=== PATIENT | female | born 1980 | race Hispanic/Latino ===

== ENCOUNTER 2016-10-06 13:45 | Emergency (ER) | payer BC ==
[2016-10-06] MEDS ORDERED: XYLOCAINE 1% MPF 5 mL INFILTRATI ONE (21:13)
[2016-10-06] MEDS ORDERED: ROCEPHIN IM ONE (21:13)
--- NOTE | 2016-10-06 21:57 | Emergency Department Report ---
Entered by HARDEEP LIMA, acting as scribe for LULI HARRIS PA. - General Chief complaint: Extremity Injury, Lower Stated complaint: LEFT FOOT INFECTION Time Seen by Provider: 10/06/16 20:37 Source: patient Mode of arrival: Ambulatory Limitations: No Limitations - History of Present Illness Initial comments: 36 y/o female with PMHx of MVP, presents to the ED c/o abscess to the medial aspect of the left foot beginning 2 weeks ago and worsening 1 week ago. The patient states the abscess initially was a blister, but became worse with wearing closed toed workboots. She was seen by her PCP for the same symptoms, and prescribed doxycycline for the symptoms. She is compliant with Abx Rx, and states that she has been soaking the affected area in hot salt water baths and applying OTC abx ointment. The affected area had pus-like drainage last night. She became concerned when the area around the abscess became increasingly pink in color. Patient denies fever, headache, dizziness, acute chest pain, shortness of breath MD complaint: abscess/boil -: week(s) (began 2 weeks ago, became worse 1 week ago) Location: L foot (medial left foot just distal from the first left toe) Severity: moderate Consistency: constant Improves with: other (hot salt water bath) Worsens with: other (wearing closed toed shoes) Context: other (patient has Hx of staph infections, was prescribed doxycyclin by her PCP. She is concerned about a change in color near the affected area) Associated symptoms: other (drainage from the affected area, denies acute changes in chest pain, dizziness, SOB) Treatments Prior to Arrival: bandages, OTC topical medication (topical Abx), antibiotic (doxycyclin (rx'ed by PCP)), other (hot salt water baths) - Related Data Home Medications Medication Instructions Recorded Confirmed Last Taken Doxycycline [Vibramycin] 100 mg PO Q12HR 10/06/16 10/06/16 10/06/16 06:30 Allergies Allergy/AdvReac Type Severity Reaction Status Date / Time No Known Allergies Allergy Verified 10/06/16 15:52 Abscess Boil HPI - HPI Chief Complaint: Extremity Injury, Lower Stated Complaint: LEFT FOOT INFECTION Time Seen by Provider: 10/06/16 20:37 Duration: >1 Week (2 weeks initial onset, worsening 1 week ago) Location: Other (left medial foot just distal from the left first toe) Severity: Moderate History: Yes Purulent Drainage (yesterday), Yes Previous History (patient has previous Hx of staph), No Fever, No Pain, No Numbness, No Foreign Body, No Insect Bite Home Medications: Home Medications Medication Instructions Recorded Confirmed Last Taken Doxycycline [Vibramycin] 100 mg PO Q12HR 10/06/16 10/06/16 10/06/16 06:30 Allergies/Adverse Reactions: Allergies Allergy/AdvReac Type Severity Reaction Status Date / Time No Known Allergies Allergy Verified 10/06/16 15:52 ED Review of Systems Comment: All other systems reviewed and negative Constitutional: denies: chills, fever Eyes: denies: eye pain, eye discharge, vision change ENT: denies: ear pain, throat pain Respiratory: denies: shortness of breath Cardiovascular: denies: chest pain Endocrine: no symptoms reported Gastrointestinal: denies: abdominal pain, nausea, diarrhea, constipation, hematemesis Genitourinary: denies: urgency, dysuria, frequency, hematuria, discharge Musculoskeletal: denies: back pain, joint swelling, arthralgia Skin: other (abscess on the left medial foot, drainage from affected area) Neurological: as per HPI. denies: headache, weakness, numbness, other ( dizziness) Psychiatric: denies: anxiety, depression Hematological/Lymphatic: denies: easy bleeding, easy bruising ED Past Medical Hx - Past Medical History Additional medical history: mitral valve prolapse, hypotension - placed on salt intake diet for tx. - Surgical History Additional Surgical History: LEEP surgery -1998 - Social History Smoking Status: Former Smoker Substance Use Type: None - Medications Home Medications: Home Medications Medication Instructions Recorded Confirmed Last Taken Type Doxycycline [Vibramycin] 100 mg PO Q12HR 10/06/16 10/06/16 10/06/16 06:30 History ED Physical Exam - General Limitations: No Limitations General appearance: alert, in no apparent distress - Head Head exam: Present: atraumatic, normocephalic - Eye Eye exam: Present: normal appearance, PERRL, EOMI Pupils: Present: normal accommodation - ENT ENT exam: Present: normal external ear exam - Neck Neck exam: Present: normal inspection, full ROM (supple) - Respiratory Respiratory exam: Present: normal lung sounds bilaterally (CTAB). Absent: respiratory distress, wheezes, rales, rhonchi - Cardiovascular Cardiovascular Exam: Present: regular rate, normal rhythm, normal heart sounds. Absent: systolic murmur, diastolic murmur, rubs, gallop - GI/Abdominal GI/Abdominal exam: Present: normal bowel sounds. Absent: soft, tenderness, guarding, rebound, organomegaly - Extremities Exam Extremities exam: Present: full ROM (left foot, digits of the left foot), other (noted is a small abscess on the medial left foot with associated erythema). Absent: tenderness - Back Exam Back exam: Present: normal inspection, full ROM - Neurological Exam Neurological exam: Present: alert, oriented X3 - Psychiatric Psychiatric exam: Present: normal affect, normal mood - Skin Skin exam: Present: warm, dry, other (small sized abscess to the medial aspect of the left foot just distal from the left first toe, no active drainage, not able to express any discharge from the affected area, no fluctuance, non-tender , associated erythema) ED Course Vital Signs 10/06/16 15:53 Temperature 98.4 F Pulse Rate 62 Respiratory 18 Rate Blood Pressure 123/92 O2 Sat by Pulse 100 Oximetry ED Medical Decision Making - Medical Decision Making 36 y/o female presents complaining of cellulitis to the medial aspect of the left foot. She received 150 mg of Rocephin in the ED for empiric treatment. Vital signs are stable. She is in no acute or respiratory distress. Erythema is around completed drained abscess. Nontender to palpation. erythematous contained to about 3 cm in diameter She has been taking doxycycline prescribed by her PCP, who previously evaluated the abscess. Discussed the patient to keep foot wrapped while at work To prevent reinfection. continue Neosporin and finish dose of antibiotic". She will be discharged home and is encouraged to follow up with a primary care provider. She is encouraged to return to the emergency room for any worsening symptoms. ED Disposition Clinical Impression: Cellulitis of foot without toes, left Disposition: DISCHARGED TO HOME OR SELFCARE Is pt being admited?: No Does the pt Need Aspirin: No Condition: Stable Instructions: Cellulitis (ED) Additional Instructions: Follow-up with your Primary care physician Continue to take medication as prescribed. Referrals: KEITH WHITE MD [Primary Care Provider] - 3-5 Days Forms: Accompanied Note, Work/School Release Form Time of Disposition: 21:39 This documentation as recorded by the JANIE ballesteros GRACE,accurately reflects the service I personally performed and the decisions made by ,LULI HARRIS PA.
[2016-10-06 22:11] VITALS: BP 121/82
== END 2016-10-06 21:43 | disposition home or self-care (01) ==
LOC: ED 13:45
DX: L03.116 Cellulitis of left lower limb (principal)
CPT/HCPCS: 96372; 99282; J0696